=== PATIENT | female | born 1985 | race Caucasian/White ===

== ENCOUNTER 2016-10-04 21:55 | Observation (INO) | payer BC, OTHER ==
[~2016-10-04] VITALS: Ht 157.5 cm; Wt 53.2 kg
[2016-10-04] MEDS ORDERED: IBUP100S2 PO (22:29)
[2016-10-05 00:30] LABS: MEAN CORPUSCULAR HEMOGLOBIN 18.9 pg (27.0-33.0); MEAN CORPUSCULAR HGB CONC 27.6 g/dl (32.0-36.5); MEAN CORPUSCULAR VOLUME 68.3 fl (80.0-96.0); RED CELL DISTRIBUTION WIDTH 17.3 % (11.5-14.5); WHITE BLOOD COUNT 10.7 K/mm3 (4.0-10.0)
[2016-10-05 00:33] LABS: INR 0.98
[2016-10-05 00:35] LABS: CONTROL LINE HCG INT CTR LINE PRESENT
[2016-10-05 00:40] LABS: ANION GAP 9 MEQ/L (8-16); BLOOD UREA NITROGEN 10 MG/DL (7-18); CALCIUM LEVEL 8.9 MG/DL (8.5-10.1); CARBON DIOXIDE LEVEL 23 MEQ/L (21-32); CHLORIDE LEVEL 104 MEQ/L (98-107); CREATININE FOR GFR 0.46 MG/DL (0.55-1.02); GLOMERULAR FILTRATION RATE > 60.0 (>60); GLUCOSE, FASTING 114 MG/DL (70-105); POTASSIUM SERUM 3.7 MEQ/L (3.5-5.1); SODIUM LEVEL 136 MEQ/L (136-145)
[2016-10-05] MEDS ORDERED: NS 500 ML IV ONE (02:15)
[2016-10-05] MEDS ORDERED: IBUP100C PO (02:37)
[2016-10-05] MEDS ORDERED: VITACHTA PO (02:38)
[2016-10-05] MEDS ORDERED: diphenhydrAMINE INJ 50MG/ML VIAL (J1200) IV ONE (03:15)
[2016-10-05] MEDS ORDERED: ACETAMINOPHEN 325 MG/10.15 ML UDC PO ONE (03:15)
[2016-10-05] MEDS ORDERED: ACETAMINOPHEN 325 MG/10.15 ML UDC As Ordered ONE (03:23)
[2016-10-05] MEDS ORDERED: diphenhydrAMINE INJ 50MG/ML VIAL (J1200) As Ordered ONE (03:24)
--- NOTE | 2016-10-05 03:40 | REPUSA ---
CLINICAL HISTORY: Bleeding. TECHNIQUE: Realtime sonographic images were obtained in multiple projections via TV approach. COMMENTS: The uterus is anteverted measuring 13.7x9.5x11.4 cm. Enlarged uterus. Posterior uterine body fibroid measuring 10.1x7.8x10.3 cm The endometrial echo pattern is within normal limits measuring 17.1 mm . Echogenic debris Clots in endometrial cavity. There is no evidence of free fluid within the pelvic cul-de-sac. The right ovary measures 3.4 x 3x2.6 cm and the left ovary measures 3.9x3.1x3.1 cm . Both ovaries are free of solid or cystic mass. There is no evidence for abnormal vascularity. IMPRESSION: Thickened endometrium. Debris and clots in the endometrial cavity. Posterior uterine body fibroid. Normal ovaries. Thank you for your kind referral of this patient.
--- NOTE | 2016-10-05 07:49 | HPE ---
DATE OF ADMISSION: 10/05/2016 HISTORY: 31-year-old, (G) 0 female who presents with sudden onset of heavy vaginal bleeding for one day on the night of admission. She presented to the emergency room (ER) due to heavy bleeding. She had several episodes of feeling dizzy while standing over the last six months. Her pain she describes as normal menstrual cramping. Her periods have been regular and she describes them as normal until this recent episode. MEDICAL HISTORY: Arthritis. SURGICAL HISTORY: None. ALLERGIES: No known drug allergies. SOCIAL HISTORY: The patient is . She lives in [place]. She works at the [employer]. She denies cigarettes, alcohol or drug use. FAMILY HISTORY: Noncontributory. PHYSICAL EXAMINATION: Temperature 99.1. Pulse 118. Respiratory rate 16. Blood pressure 108/59. Oxygen saturation 97% in room air. She is in no apparent distress; however, she is pale in appearance. Head and Neck Exam: Normal. Lungs: Clear. Heart: Regular rate and rhythm. Abdomen: Nontender. Palpable mass 3 cm below the umbilicus that is firm and nontender. Extremities: Nontender. LABS: Hemoglobin 6.5 g/dL. Ultrasound shows a 10.3 cm fundal posterior uterine fibroid with normal ovaries. ASSESSMENT: 31-year-old, G0 female with severe anemia secondary to menorrhagia. She has a large uterine fibroid. The patient is admitted for blood transfusion and in the process of receiving two units of red blood cells. Blood counts will be repeated. Her bleeding is minimal at this time. Options for treatment of the fibroid were discussed, including surgical removal. Also discussed Lupron treatment in order to stop bleeding and increase blood counts further.
[2016-10-05 08:00] VITALS: BP 109/64
[2016-10-05] MEDS ORDERED: LR 1,000 ML IV SCH (09:45)
[2016-10-05 11:53] LABS: ANION GAP 7 MEQ/L (8-16); BLOOD UREA NITROGEN 4 MG/DL (7-18); CALCIUM LEVEL 8.7 MG/DL (8.5-10.1); CARBON DIOXIDE LEVEL 24 MEQ/L (21-32); CHLORIDE LEVEL 112 MEQ/L (98-107); CREATININE FOR GFR 0.45 MG/DL (0.55-1.02); GLOMERULAR FILTRATION RATE > 60.0 (>60); GLUCOSE, FASTING 104 MG/DL (70-105); POTASSIUM SERUM 3.9 MEQ/L (3.5-5.1); SODIUM LEVEL 143 MEQ/L (136-145)
[2016-10-05 11:56] VITALS: BP 107/66
[2016-10-05 13:14] LABS: MEAN CORPUSCULAR HEMOGLOBIN 22.7 pg (27.0-33.0); WHITE BLOOD COUNT 8.2 K/mm3 (4.0-10.0)
[2016-10-05 13:18] LABS: MEAN CORPUSCULAR VOLUME 73.3 fl (80.0-96.0)
[2016-10-05 16:00] VITALS: BP 110/65
[2016-10-05] MEDS ORDERED: FERR220E2 PO (17:23)
[2016-10-12] MEDS ORDERED: PERC5TAB6 PO (13:06)
[2016-10-16] MEDS ORDERED: OXYC1TAB23 PO (17:53)
[2016-10-16] MEDS ORDERED: SENN8.6C PO (17:55)
== END 2016-10-05 17:40 | disposition home or self-care (01) ==
LOC: M ED 22:54 → M ED INP 22:55 → INTOOBSV 10-05 02:28 → M ED INP 10-05 02:28 → UNDOADMOB 10-05 02:28 → M PED 10-05 04:19 → M ED INP 10-05 04:19 → UNDODISOB 10-05 17:40
PROVIDERS: ADMIT Specialist; ATTEND Specialist
DX: N92.0 Excessive and frequent menstruation with regular cycle (principal); D50.0 Iron deficiency anemia secondary to blood loss (chronic); D25.9 Leiomyoma of uterus, unspecified; I95.1 Orthostatic hypotension; M08.00 Unspecified juvenile rheumatoid arthritis of unspecified site; Z79.899 Other long term (current) drug therapy
CPT/HCPCS: 36415; 36430; 76830; 76856; 80048; 84703; 85027; 85610; 86850; 86900; 86901; 86920; 93976; 96361; 96374; 99285; J1200; P9016

== ENCOUNTER → 2016-10-13 | Outpatient (REF) | payer OTHER ==
[~2016-10-13] MED LIST: FERR220E2 PO; IBUP100C PO; IBUP100S2 PO; OXYC1TAB23 PO; PERC5TAB6 PO; SENN8.6C PO; VITACHTA PO
[2016-10-13 19:19] LABS: MEAN CORPUSCULAR HEMOGLOBIN 22.4 pg (27.0-33.0); MEAN CORPUSCULAR HGB CONC 29.9 g/dl (32.0-36.5); MEAN CORPUSCULAR VOLUME 74.7 fl (80.0-96.0); RED CELL DISTRIBUTION WIDTH 20.2 % (11.5-14.5); WHITE BLOOD COUNT 9.6 K/mm3 (4.0-10.0)
== END ==
LOC: M LAB REF 17:03
PROVIDERS: ATTEND Obstetrics & Gynecology
DX: D25.0 Submucous leiomyoma of uterus (principal)

== ENCOUNTER → 2017-11-22 | Outpatient (REF) | payer BC, OTHER ==
[2017-11-24 14:13] LABS: HPV HYBRID CAPTURE II Negative (Negative)
== END ==
LOC: M LAB REF 12:53
DX: Z12.4 Encounter for screening for malignant neoplasm of cervix (principal); R85.610 Atypical squamous cells of undetermined significance on cytologic smear of anus (ASC-US)
CPT/HCPCS: G0123

== ENCOUNTER → 2019-02-27 | Outpatient (REF) | payer OTHER ==
[~2019-02-27] MED LIST changes: +FERR1ELX PO; -FERR220E2 PO; +IBUP0.77 PO; -IBUP100S2 PO; +PERC5TAB12 PO; -PERC5TAB6 PO
== END ==
LOC: M LAB REF 17:18
PROVIDERS: ATTEND Obstetrics & Gynecology
DX: Z12.4 Encounter for screening for malignant neoplasm of cervix (principal)

== ENCOUNTER → 2019-03-26 | Outpatient (CLI) | payer BC, OTHER ==
--- NOTE | 2019-03-27 04:37 | REP ---
Clinical: Myomatous uterus. Technique: Transabdominal pelvic ultrasound with color Doppler evaluation of the ovaries. Comparison: 10/05/2016. Findings: Bladder is grossly unremarkable and measures 12.0 x 7.9 x 4.9 cm. Anteverted uterus measures 8.7 x 4.4 x 5.2 cm. Endometrial complex measures 12.6 mm thickness. No discrete uterine or endometrial abnormalities appreciated. Bilateral ovaries are normal in vascularity without torsion. Right ovary measures 3.0 x 1.6 x 2.1 cm; RI 0.63. Left ovary measures 4.5 x 2.5 x 2.8 cm and includes 2.4 x 1.9 x 2.2 cm complex cyst likely physiologic; RI 0.60. Trace pelvic free fluid. Impression: 1. Normal appearance to the uterus and right ovary. 2. Complex cystic lesion in the left ovary likely physiologic cyst. Consider reevaluation in 4-6 weeks to evaluate for resolution. Electronically Signed by Chris Mckinnon MD 03/27/2019 04:29 A
== END ==
LOC: M RAD 09:44
PROVIDERS: ATTEND Obstetrics & Gynecology
DX: D25.1 Intramural leiomyoma of uterus (principal); N83.202 Unspecified ovarian cyst, left side

== ENCOUNTER → 2019-03-31 | Outpatient (REF) | payer OTHER | LOC: M LAB REF 15:05 | PROVIDERS: ATTEND Physician Assistant | DX: N39.0 Urinary tract infection, site not specified (principal) ==

== ENCOUNTER 2019-04-08 17:23 | Emergency (ER) | payer BC, OTHER ==
[~2019-04-08] VITALS: Ht 157.5 cm; Wt 56.8 kg
[2019-04-08] MEDS ORDERED: CEPH250REC (17:30)
[2019-04-08 17:59] LABS: BASO # 0.1 10^3/uL (0.0-0.2); BASO % 0.6 % (0.0-1.0); EOS # 0.2 10^3/uL (0.0-0.5); EOS % 1.8 % (0.0-3.0); HEMOGLOBIN 14.7 g/dl (12.0-15.5); LYMPH # 2.1 10^3/uL (1.5-5.0); LYMPH % 23.2 % (24.0-44.0); MEAN CORPUSCULAR HEMOGLOBIN 30.2 pg (27.0-33.0); MEAN CORPUSCULAR HGB CONC 33.4 g/dl (32.0-36.5); MEAN CORPUSCULAR VOLUME 90.5 fl (80.0-96.0); MONO # 0.6 10^3/uL (0.0-0.8); MONO % 6.6 % (0.0-5.0); NEUTROPHILS # 6.1 10^3/uL (1.5-8.5); NEUTROPHILS % 67.5 % (36.0-66.0); PLATELET COUNT, AUTOMATED 286 10^3/uL (150-450); RED BLOOD COUNT 4.86 10^6/uL (4.00-5.40); WHITE BLOOD COUNT 9.1 10^3/uL (4.0-10.0)
[2019-04-08 18:26] LABS: BLOOD UREA NITROGEN 5 MG/DL (7-18); CALCIUM LEVEL 9.3 MG/DL (8.5-10.1); CARBON DIOXIDE LEVEL 25 MEQ/L (21-32); CHLORIDE LEVEL 107 MEQ/L (98-107); CREATININE FOR GFR 0.73 MG/DL (0.55-1.30); GLOMERULAR FILTRATION RATE > 60.0 (>60); GLUCOSE, FASTING 95 MG/DL (70-100); HCG, SERUM QUANTITATIVE 182 MIU/ML; POTASSIUM SERUM 4.2 MEQ/L (3.5-5.1); SODIUM LEVEL 140 MEQ/L (136-145)
--- NOTE | 2019-04-08 22:09 | REPVR ---
PROCEDURE INFORMATION: Exam: US First Trimester, Transabdominal Exam date and time: 04/08/2019 9:01 PM Clinical history: 34 years old, female; Lmp or gestational age (in weeks): 5w6d; Antepartum complications; Bleeding; ; Prior surgery; Surgery date: 6+ months; Surgery type: Fibriodectomy 2 yrs ago; Additional info: Vb TECHNIQUE: Imaging protocol: Real-time transabdominal obstetrical ultrasound of the maternal pelvis and a first trimester , less than 14 weeks 0 days, with image documentation. COMPARISON: No relevant prior studies available. FINDINGS: GESTATION: Gestation: No intrauterine gestation seen at present. Heart rate: N/A Placenta: N/A Amniotic fluid: N/A BIOMETRY: Estimated gestational age: N/A MATERNAL: Uterus: 7.4 x 4.4 x 5.6 cm uterus with a 7 mm thick endometrium. Cervix: Unremarkable. Right adnexa: 3.5 x 2.9 x 3.1 cm right ovary with normal follicular architecture and blood flow. Left adnexa: 2.8 x 2.1 x 2.5 cm left ovary containing a 12 mm corpus luteal cyst. Normal low resistant left ovary and waveforms. Intraperitoneal: No intraperitoneal free fluid. IMPRESSION: No intra-or extrauterine gestation seen at present, question too early. Electronically signed by: Sebastian Larson On 04/08/2019 22:09:22 PM
[2019-04-08 22:17] VITALS: BP 122/74
== END 2019-04-08 22:22 | disposition home or self-care (01) ==
LOC: M ED 17:23
DX: O20.0 Threatened abortion (principal); Z79.2 Long term (current) use of antibiotics; Z3A.01 Less than 8 weeks gestation of pregnancy

== ENCOUNTER → 2019-04-10 | Outpatient (CLI) | payer BC, OTHER ==
[~2019-04-10] MED LIST changes: +CEPH250REC
== END ==
LOC: M LAB 16:38
PROVIDERS: ATTEND Emergency Medicine
DX: O20.0 Threatened abortion (principal); Z3A.00 Weeks of gestation of pregnancy not specified

== ENCOUNTER → 2019-04-12 | Outpatient (CLI) | payer BC, OTHER | LOC: M LAB 16:53 | PROVIDERS: ATTEND Obstetrics & Gynecology | DX: O20.0 Threatened abortion (principal) ==

== ENCOUNTER → 2019-04-19 | Outpatient (CLI) | payer BC, OTHER | LOC: M LAB 16:40 | PROVIDERS: ATTEND Obstetrics & Gynecology | DX: O03.4 Incomplete spontaneous abortion without complication (principal) ==

== ENCOUNTER → 2019-05-17 | Outpatient (CLI) | payer BC, OTHER ==
[~2019-05-17] MED LIST changes: +ISOVUE-370 76% 100ML VIAL (Q9967) As Ordered ONE
--- NOTE | 2019-05-17 15:59 | REP ---
Hysterosalpingogram: History: Infertility. Status post open uterine myomectomy. Findings: The uterus is tipped somewhat to the left. There is no evidence of uterine synechiae or endometrial obstruction. The isthmic and ampullary segments of the fallopian tubes are bilaterally opacified in a pattern which is symmetric. Bilateral tubal patency is observed by peritoneal spillage. Fluoroscopy time is 0.3 minutes. Impression: Bilateral tubal patency is documented. No significant endometrial abnormality. Electronically Signed by Luis Acosta MD 05/17/2019 04:07 P
== END ==
LOC: M RADPRO 13:18
PROVIDERS: ATTEND Obstetrics & Gynecology
DX: N97.9 Female infertility, unspecified (principal)
CPT/HCPCS: 58340; 74740; Q9967

== ENCOUNTER → 2020-02-10 | Outpatient (REF) | payer OTHER ==
[~2020-02-10] MED LIST changes: -ISOVUE-370 76% 100ML VIAL (Q9967) As Ordered ONE
== END ==
LOC: M LAB REF 11:38
PROVIDERS: ATTEND Physician Assistant
DX: R30.0 Dysuria (principal)

== ENCOUNTER → 2021-02-05 | Outpatient (CLI) | payer BC, OTHER ==
[~2021-02-05] MED LIST changes: -IBUP100C PO; +IBUP100C2 PO
[2021-02-05 17:18] LABS: HEMATOCRIT 44.7 % (36.0-47.0); HEMOGLOBIN 14.9 g/dl (12.0-15.5); MEAN CORPUSCULAR HEMOGLOBIN 30.1 pg (27.0-33.0); MEAN CORPUSCULAR HGB CONC 33.3 g/dl (32.0-36.5); MEAN CORPUSCULAR VOLUME 90.3 fl (80.0-96.0); PLATELET COUNT, AUTOMATED 257 10^3/uL (150-450); RED BLOOD COUNT 4.95 10^6/uL (4.00-5.40); WHITE BLOOD COUNT 10.4 10^3/uL (4.0-10.0)
[2021-02-05 18:17] LABS: HEPATITIS C VIRUS ABY INDEX 0.1 INDEX (<0.8); HIV 1&2 SCREEN CENTAUR NEGATIVE (NEGATIVE)
[2021-02-05 18:23] LABS: GC DNA AMPLIFICATION NEGATIVE (NEGATIVE)
== END ==
LOC: M PLALAB 13:16
PROVIDERS: ATTEND Obstetrics & Gynecology
DX: O34.29 Maternal care due to uterine scar from other previous surgery (principal); Z3A.00 Weeks of gestation of pregnancy not specified

== ENCOUNTER → 2021-04-23 | Outpatient (CLI) | payer BC, OTHER ==
--- NOTE | 2021-04-23 09:30 | REP ---
INDICATION: ANATOMY COMPARISON: None. TECHNIQUE: Transabdominal obstetrical ultrasound with color Doppler evaluation. FINDINGS: Examination demonstrates a single live intrauterine in variable presentation. motion is identified by technologist. Placenta is noted anterior and grade 1 without evidence for placenta previa or abruption. Amniotic fluid volume is normal. Cervix measures 4.7 cm in length and appears closed.. Selected gestational age: 22 weeks 4 days with BEREKET 08/23/2021. Gestational age by current measurements 22 weeks 1 day with BEREKET 08/26/2021. FHR equals 149 beats per minute. BPD: 5.3 cm at 22 weeks 0 days HC: 19.7 cm at 21 weeks 6 days AC: 17.2 cm at 22 weeks 1 day FL: 3.9 cm at 22 weeks 3 days HL: 3.6 cm at 22 weeks 2 days HC/AC: 1.14 Estimated weight 487 grams (28thpercentile). Anatomical assessment demonstrates normal structures including cranium, choroid plexus, cavum, cerebellum/posterior fossa, facial features, lungs, four-chamber heart/ventricular outflow tracts, diaphragm, stomach, cord insertion/three-vessel cord, kidneys/bladder, spine, and extremities. IMPRESSION: Single live intrauterine in variable presentation demonstrating appropriate estimated weight. Anatomical assessment is complete and normal. <Electronically signed by Chris Mckinnon > 04/23/21 [id number]
== END ==
LOC: M WHC 07:44
PROVIDERS: ATTEND Obstetrics & Gynecology
DX: O09.522 Supervision of elderly multigravida, second trimester (principal); O34.29 Maternal care due to uterine scar from other previous surgery; Z3A.14 14 weeks gestation of pregnancy

== ENCOUNTER → 2021-05-21 | Outpatient (CLI) | payer BC, OTHER ==
[2021-05-21 10:19] LABS: HEMATOCRIT 36.3 % (36.0-47.0); HEMOGLOBIN 11.7 g/dl (12.0-15.5); MEAN CORPUSCULAR HEMOGLOBIN 30.2 pg (27.0-33.0); MEAN CORPUSCULAR HGB CONC 32.2 g/dl (32.0-36.5); MEAN CORPUSCULAR VOLUME 93.8 fl (80.0-96.0); PLATELET COUNT, AUTOMATED 234 10^3/uL (150-450); RED BLOOD COUNT 3.87 10^6/uL (4.00-5.40); WHITE BLOOD COUNT 10.5 10^3/uL (4.0-10.0)
== END ==
LOC: M PLALAB 07:28
PROVIDERS: ATTEND Obstetrics & Gynecology
DX: O09.522 Supervision of elderly multigravida, second trimester (principal)

== ENCOUNTER → 2021-07-21 | Outpatient (CLI) | payer BC, OTHER ==
[~2021-07-21] VITALS: Ht 157.5 cm; Wt 69.1 kg
[~2021-07-21] MED LIST changes: +ACET325C5 PO; +BETAMETHASONE SOLUSPAN 6MG/ML 5ML VIAL (J0702 PER 3MG) IM SCH; +CLAR10CA3 PO; +COLA100C5 PO; +HOME MED LIST COMPLETE! XX SCH; +IBUP80TA PO; +PREN1CHW6 PO; +TUMS750C22 PO
[2021-07-21 11:04] VITALS: BP 122/71
[2021-07-21 12:04] VITALS: BP 104/66
[2021-07-21 12:21] VITALS: BP 98/71
== END ==
LOC: M LDO 10:35
PROVIDERS: ATTEND Obstetrics & Gynecology
DX: O34.29 Maternal care due to uterine scar from other previous surgery (principal); O09.513 Supervision of elderly primigravida, third trimester; Z3A.35 35 weeks gestation of pregnancy
CPT/HCPCS: 59025; 96372; G0378; G0463; J0702

== ENCOUNTER 2021-07-22 11:42 | Outpatient (CLI) | payer BC, OTHER ==
[~2021-07-22] VITALS: Ht 157.5 cm; Wt 69.2 kg
[~2021-07-22 11:42] MED LIST changes: -BETAMETHASONE SOLUSPAN 6MG/ML 5ML VIAL (J0702 PER 3MG) IM SCH; -COLA100C5 PO; -HOME MED LIST COMPLETE! XX SCH; -IBUP80TA PO
[2021-07-22] MEDS ORDERED: BETAMETHASONE SOLUSPAN 6MG/ML 5ML VIAL (J0702 PER 3MG) IM ONE (11:50)
[2021-07-22 11:57] VITALS: BP 110/64
== END 2021-07-22 12:19 | disposition home or self-care (01) ==
LOC: M LDO 11:42
PROVIDERS: ATTEND Advanced Practice Midwife
DX: O34.29 Maternal care due to uterine scar from other previous surgery (principal); O09.513 Supervision of elderly primigravida, third trimester; Z3A.35 35 weeks gestation of pregnancy
CPT/HCPCS: 59025; 96372; G0378; G0463; J0702

== ENCOUNTER 2021-07-28 05:27 | Inpatient (IN) | payer BC, OTHER ==
[~2021-07-28] VITALS: Ht 157.5 cm; Wt 67.3 kg
[2021-07-28] VITALS (7 sets, daily range): BP systolic 100–137; BP diastolic 61–73
[2021-07-28] MEDS ORDERED: HOME MED LIST COMPLETE! XX SCH (05:45)
[2021-07-28] MEDS ORDERED: ceFAZolin SOD 2 GM in IV 1 EA IV ONE (06:30)
[2021-07-28] MEDS ORDERED: LACTATED RINGER'S 1000 ML IV ONE (06:30)
[2021-07-28 06:42] LABS: HEMATOCRIT 36.8 % (36.0-47.0); HEMOGLOBIN 12.1 g/dl (12.0-15.5); MEAN CORPUSCULAR HEMOGLOBIN 27.3 pg (27.0-33.0); MEAN CORPUSCULAR HGB CONC 32.9 g/dl (32.0-36.5); MEAN CORPUSCULAR VOLUME 83.1 fl (80.0-96.0); PLATELET COUNT, AUTOMATED 385 10^3/uL (150-450); RED BLOOD COUNT 4.43 10^6/uL (4.00-5.40); WHITE BLOOD COUNT 16.9 10^3/uL (4.0-10.0)
[2021-07-28] MEDS ORDERED: BICITRA 30ML SOLN UDC PO ONE (07:00)
[2021-07-28] MEDS ORDERED: LR 1,000 ML IV SCH ×3 (07:30→09:45)
[2021-07-28] MEDS ORDERED: ONDANSETRON 4MG/2ML VIAL As Ordered ONE (07:49)
[2021-07-28] MEDS ORDERED: MORPHINE PRES-FREE INJ 10 MG/10 ML VIAL (J2274) As Ordered ONE (07:49)
[2021-07-28] MEDS ORDERED: METOCLOPRAMIDE INJ 10MG/2ML VIAL (J2765 PER 1) IV PRN (07:58)
[2021-07-28] MEDS ORDERED: NALBUPHINE HCL 10 MG/ML AMP (J2300) IV PRN (07:58)
[2021-07-28] MEDS ORDERED: ONDANSETRON 4MG/2ML VIAL IV PRN ×2 (07:58→09:20)
[2021-07-28] MEDS ORDERED: diphenhydrAMINE 50MG/ML VIAL (J1200) IV PRN (07:58)
[2021-07-28] MEDS ORDERED: NALOXONE INJ 0.4MG/1ML VIAL (J2310 PER 1MG) IV PRN ×2 (07:58)
[2021-07-28] MEDS ORDERED: ACETAMINOPHEN 1000MG 100ML IV BTL (OFIRMEV) (J0131 PER 10MG) As Ordered ONE (08:05)
[2021-07-28] MEDS ORDERED: propofoL 200 MG/20 ML VIAL As Ordered ONE (08:17)
[2021-07-28] MEDS ORDERED: OXYTOCIN 30 UNITS IN 0.9% NaCl 500ML IV BAG (J2590) As Ordered ONE ×2 (08:25→09:19)
[2021-07-28] MEDS ORDERED: KETOROLAC 60MG 2ML VIAL As Ordered ONE (08:33)
[2021-07-28] MEDS ORDERED: OXYTOCIN DRIP 30 UNITS in IV 1 EA IV SCH (09:20)
[2021-07-28] MEDS ORDERED: MEASLES,MUMPS,RUBELLA VACCINE INJ (MMR-II) (90707) SC SCH (09:20)
[2021-07-28] MEDS ORDERED: PERCOCET 5MG/325MG TAB PO PRN ×2 (09:20→09:45)
[2021-07-28] MEDS ORDERED: KETOROLAC 30 MG/ML 1ML VIAL IV SCH (09:20)
[2021-07-28] MEDS ORDERED: SIMETHICONE 80MG CHEW TAB PO PRN (09:20)
[2021-07-28] MEDS ORDERED: RHOGAM 300 MCG (1500 IU) INJ (J2790) IM SCH (09:20)
[2021-07-28] MEDS ORDERED: OXYC1TAB23 PO (09:21)
[2021-07-28] MEDS ORDERED: IBUP80TA PO (09:22)
[2021-07-28] MEDS ORDERED: COLA100C5 PO (09:22)
[2021-07-28] MEDS ORDERED: fentaNYL 100 MCG/2 ML INJECTION (J3010) IV PRN (09:45)
[2021-07-28] MEDS ORDERED: ePHEDrine SULFATE 25 MG/5 ML(5MG/ML) SYRINGE As Ordered ONE (10:03)
[2021-07-28] MEDS ORDERED: PHENYLephrine 500MCG 5ML (100MCG/ML) SYRINGE As Ordered ONE (10:03)
[2021-07-28] MEDS: KETOROLAC 30 MG/ML 1ML VIAL IV SCH ×2 (14:09→20:29)
[2021-07-28] MEDS: DOCUSATE SODIUM 100MG CAPSULE PO SCH (20:29)
[2021-07-29 02:00] VITALS: BP 98/54
[2021-07-29] MEDS: KETOROLAC 30 MG/ML 1ML VIAL IV SCH (02:07)
[2021-07-29 06:00] VITALS: BP 107/62
[2021-07-29 06:29] LABS: HEMATOCRIT 30.9 % (36.0-47.0); MEAN CORPUSCULAR HEMOGLOBIN 27.4 pg (27.0-33.0); MEAN CORPUSCULAR VOLUME 85.6 fl (80.0-96.0); PLATELET COUNT, AUTOMATED 322 10^3/uL (150-450); RED BLOOD COUNT 3.61 10^6/uL (4.00-5.40); WHITE BLOOD COUNT 18.2 10^3/uL (4.0-10.0)
[2021-07-29 06:30] LABS: HEMOGLOBIN 9.9 g/dl (12.0-15.5)
[2021-07-29] MEDS: DOCUSATE SODIUM 100MG CAPSULE PO SCH ×2 (08:02→20:39)
[2021-07-29] MEDS: PRENATAL VITAMINS CHEWABLE TABLET PO SCH (08:03)
[2021-07-29 09:48] VITALS: BP 105/59
[2021-07-29] MEDS: IBUPROFEN 800 MG TAB PO SCH ×2 (09:48→18:55)
[2021-07-29] MEDS: PERCOCET 5MG/325MG TAB PO PRN (12:21)
[2021-07-29 14:05] VITALS: BP 99/55
[2021-07-29 18:01] VITALS: BP 101/60
[2021-07-29 22:00] VITALS: BP 135/68
[2021-07-30] MEDS: IBUPROFEN 800 MG TAB PO SCH ×2 (01:03→10:43)
[2021-07-30 02:00] VITALS: BP 108/56
[2021-07-30 05:49] VITALS: BP 99/54
[2021-07-30] MEDS: PERCOCET 5MG/325MG TAB PO PRN (07:47)
[2021-07-30] MEDS: DOCUSATE SODIUM 100MG CAPSULE PO SCH (09:00)
[2021-07-30] MEDS: PRENATAL VITAMINS CHEWABLE TABLET PO SCH (09:00)
== END 2021-07-30 11:40 | disposition home or self-care (01) | DRG 540 ==
LOC: M LDI 05:27 → M OBS 10:51
PROVIDERS: ADMIT Obstetrics & Gynecology; ATTEND Obstetrics & Gynecology
PROC: 0UB70ZZ Excision of Bilateral Fallopian Tubes, Open Approach (ICD-10-PCS; 2021-07-28)
PROC: 10D00Z1 Extraction of Products of Conception, Low, Open Approach (ICD-10-PCS; principal; 2021-07-28 07:30)
DX: O34.29 Maternal care due to uterine scar from other previous surgery (principal); Z30.2 Encounter for sterilization; Z3A.36 36 weeks gestation of pregnancy; Z37.0 Single live birth

== ENCOUNTER → 2021-12-28 | Outpatient (REF) | payer OTHER, BC ==
[~2021-12-28] MED LIST changes: +COLA100C5 PO; +IBUP80TA PO
== END ==
LOC: M SFHCWAGY 16:45
PROVIDERS: ATTEND Obstetrics & Gynecology
DX: Z12.4 Encounter for screening for malignant neoplasm of cervix (principal); Z01.419 Encounter for gynecological examination (general) (routine) without abnormal findings; Z77.9 Other contact with and (suspected) exposures hazardous to health